=== PATIENT | female | born 1965 | race Caucasian/White ===

== ENCOUNTER → 2019-09-29 15:27 | Outpatient (CLI) | payer OTHER, SELFPAY ==
[2018-09-27 13:07] VITALS: BMI 27.6
[2019-09-29 16:36] LABS: Absolute Lymphocyte Count 2.71 X10^3/uL (0.83-4.51); Absolute Neutrophil Count 3.5 X10^3/uL (2.0-7.7); Basophil# 0.09 X10^3/uL; Basophil% 1.3 % (0-1); Eosinophil# 0.19 X10^3/uL; Eosinophils% 2.7 % (0-5); Hematocrit 42.9 % (37-47); Hemoglobin 14.6 g/dL (12.0-15.0); Lymphocyte # 2.71 X10^3/ul (4.0); Lymphocyte % 38.5 % (19-41); Mean Corpuscular Hgb 31.5 pg (27.0-32.0); Mean Corpuscular Volume 92.7 fL (81-99); Mean Platelet Vol. 10.5 fl (6.2-12.0); Monocyte# 0.55 X10^3/uL; Monocyte% 7.8 % (0-10); NRBC Flagged by Analyzer 0 % (0-5); Neutrophil # 3.47 X10^3/uL (2.7-7.7); Neutrophil % 49.4 % (47-70); Platelet Count 253 K/mm3 (150-450); RBC Distribution Width SD 41.1 fl (35.1-43.9); Red Blood Count 4.63 M/mm3 (4.2-5.4)
[2019-09-29 16:37] LABS: Erythrocyte Sedimentation Rate 9 mm/hr (0-30)
[2019-09-29 17:16] LABS: ALB/GLOB Ratio 1.2 RATIO (0.9-2.4); AST(SGOT) 22 U/L (15-37); Alanine Aminotransfer ALT/SGPT 40 U/L (13-56); Albumin, Serum 4.2 g/dL (3.2-5.0); Alkaline Phosphatase 121 U/L (45-117); Anion Gap 5 (5-15); BUN 9 mg/dL (7-18); BUN/Creat Ratio 12.5 RATIO (10-20); Calcium,Total 9.2 mg/dL (8.5-10.1); Chloride 107 mmol/L (98-107); Creatinine, Serum 0.72 mg/dL (0.55-1.02); EST Glomerular Filtration Rate 89 mL/min (>60); Est Glom Filt Rate - Afr Amer 108 mL/min (>60); Globulin 3.4 g/dL (2.2-4.2); Glucose 88 mg/dL (74-106); Potassium 4.1 mmol/L (3.5-5.1); Protein, Total 7.6 g/dL (6.4-8.2); Rheumatoid Factor < 10.0 IU/mL (<15); Sodium Level 140 mmol/L (136-145); Uric Acid 5.3 mg/dL (2.6-6.0)
[2019-09-29 17:18] LABS: T3 Total - Triiodothyronine 1.26 ng/mL (0.6-1.81); Vitamin D,25 Hydroxy 9.7 ng/mL (29.95-100.01)
[2019-10-04 12:31] LABS: ANTINUCLEAR ANTIBODIES DIRECT Negative (Negative)
[2019-10-04 16:43] LABS: C1 EST Inhibitor, Functional 82 (.)
== END ==
PROVIDERS: PCP Family Medicine; Referring Provider Specialist; Visit Provider Specialist
DX: T78.3XXA Angioneurotic edema, initial encounter (principal); M35.9 Systemic involvement of connective tissue, unspecified; E55.9 Vitamin D deficiency, unspecified; E07.9 Disorder of thyroid, unspecified
CPT/HCPCS: 36415; 80053; 82306; 84156; 84480; 84550; 85025; 85652; 86038; 86160; 86161; 86431

== ENCOUNTER → 2023-02-25 | Outpatient (CLI) | payer OTHER, SELFPAY ==
[2023-02-25 11:39] LABS: Absolute Lymphocyte Count 2.63 X10^3/uL (0.83-4.51); Absolute Neutrophil Count 2.3 X10^3/uL (2.0-7.7); Basophil# 0.08 X10^3/uL; Basophil% 1.5 % (0-1); Eosinophil# 0.13 X10^3/uL; Eosinophils% 2.4 % (0-5); Hematocrit 42.8 % (37-47); Hemoglobin 13.8 g/dL (12.0-15.0); Lymphocyte # 2.63 X10^3/ul (0.83-4.51); Lymphocyte % 47.8 % (19-41); Mean Corp Hgb Conc 32.2 g/dL (32-36); Mean Corpuscular Hgb 31.1 pg (27.0-32.0); Mean Corpuscular Volume 96.4 fL (81-99); Mean Platelet Vol. 10.5 fl (6.2-12.0); Monocyte# 0.38 X10^3/uL; Monocyte% 6.9 % (0-10); NRBC Flagged by Analyzer 0 % (0-5); Neutrophil # 2.25 X10^3/uL (2.7-7.7); Neutrophil % 40.9 % (47-70); Platelet Count 234 K/mm3 (150-450); RBC Distribution Width SD 42.5 fl (35.1-43.9); Red Blood Count 4.44 M/mm3 (4.2-5.4); White Blood Count 5.5 K/mm3 (4.4-11.0)
[2023-02-25 12:23] LABS: AST(SGOT) 22 U/L (15-37); Alanine Aminotransfer ALT/SGPT 30 U/L (13-56); Albumin, Serum 3.9 g/dL (3.2-5.0); Alkaline Phosphatase 96 U/L (45-117); Anion Gap 5 (5-15); BUN 10 mg/dL (7-18); BUN/Creat Ratio 15.1 RATIO (10-20); Bilirubin, Direct 0.16 mg/dL (0.00-0.30); Calcium,Total 9.1 mg/dL (8.5-10.1); Chloride 110 mmol/L (98-107); Cholesterol 198 mg/dL (200); Creatinine, Serum 0.66 mg/dL (0.55-1.02); EST Glomerular Filtration Rate 97 mL/min (>60); Est Glom Filt Rate - Afr Amer 117 mL/min (>60); Globulin 2.9 g/dL (2.2-4.2); Glucose 88 mg/dL (74-106); High Density Lipoprotein 59 mg/dL; Protein, Total 6.8 g/dL (6.4-8.2); Sodium Level 142 mmol/L (136-145); T4 Free Direct 1.04 ng/dL (0.76-1.46); Thyroid Stim Hormone (TSH) 1.19 uIU/mL (0.358-3.74); Triglycerides 128 mg/dL; Very Low Density Lipoprotein 26 mg/dL (5-40)
== END | disposition home or self-care (01) ==
LOC: LAB 11:05
PROVIDERS: PCP Family Medicine; Referring Provider Nurse Practitioner Gerontology; Visit Provider Nurse Practitioner Gerontology
DX: E78.2 Mixed hyperlipidemia (principal); R53.83 Other fatigue
CPT/HCPCS: 36415; 80048; 80061; 80076; 84439; 84443; 84481; 85025

== ENCOUNTER 2023-12-05 10:40 | Emergency (ER) | payer OTHER, SELFPAY ==
[2023-12-05 10:42] VITALS: BP 166/110; PULSE 60; RESP 18; TEMP 35.9; O2SAT 98; BMI 28.3
--- NOTE | 2023-12-05 11:08 | EX.ED.DYSGE1 ---
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 About 8 days ago she developed a rash on her face and neck and a feeling of burning discomfort in her throat. She states her skin feels like it has a sunburn. She saw her PCP 2 days after onset and was given a steroid shot and p.o. prednisone. She is also taking Benadryl and Zyrtec. The rash resolved but she still feels an abnormal high sunburn like sensation in her face and throat. She has no difficulty swallowing or breathing. She states these symptoms occur several times per year and she has seen an insurance claim approver with no source found. The only medication she takes is atenolol. PFSH <PIPE Koehler - Last Filed: 12/05/23 21:04> [facility] Medical History (Updated 12/05/23 @ 12:[address] Carmelo Cary MD) Arthritis Benign hypertension Essential hypertension Facial swelling Fibromyalgia History of angioedema Hyperlipemia, mixed Near syncope Rheumatic fever Sinus tachycardia Home Medications multivitamin 1 tab PO DAILY 10/01/20 [History Last Taken Unknown] lactobacillus combination no.9 4 billion cell capsule (Adult 50 Plus Probiotic) 4,000 mmu cells PO DAILY PRN 02/18/23 [History Last Taken Unknown] atenolol 50 mg tablet 50 mg PO QDAY #90 tabs 05/05/23 [Rx Last Taken Unknown] doxycycline hyclate 100 mg capsule 100 mg PO Q12H #14 caps 07/06/23 [Rx Last Taken Unknown] famotidine 20 mg tablet (Pepcid) 20 mg PO BID 5 days #10 tabs 12/05/23 [Rx Last Taken Unknown] Allergy/AdvReac Type Severity Reaction Status Date / Time sulfamethoxazole Allergy Severe swollen Verified 12/05/23 10:41 [From Bactrim] tongue trimethoprim [From Bactrim] Allergy Severe swollen Verified 12/05/23 10:41 tongue Penicillins Allergy Unknown Unknown Verified 12/05/23 10:41 Family History Mother CVA (cerebral vascular accident) Diabetes Hypertension Surgical History H/O section History of cholecystectomy History of hysterectomy History of replacement of both shoulder joints Social History Smoking Status: Never smoker alcohol intake: never substance use type: does not use caffeine: Yes Type: carbonated beverages what type of physical activity do you participate in: none seatbelt use: always do you feel safe at home: Yes ROS <PIPE Koehler - Last Filed: 12/05/23 21:04> ROS ED ROS Narrative Constitutional: Negative for fever, chills, malaise. CVS: Negative for palpitations, chest pain. Respiratory: Negative for shortness of breath. GI: Negative for nausea, vomiting. EXAM <PIPE Koehler - Last Filed: 12/05/23 21:04> Physical Exam Narrative Exam Narrative: CONST: Patient sitting in no acute distress. EYES: Normal inspection. ENT: No angioedema, moist mucous membranes and normal posterior oropharynx, no drooling or stridor. NECK: Normal inspection. RESP: Speaking in full sentences in no respiratory distress, CTAB. CVS: Regular rate and rhythm, no murmur, no gallop. SKIN: Color normal, no rash, warm, dry, intact. EXTREMITIES: Normal appearance, no pedal edema. NEURO: Oriented x4. PSYCH: Normal affect. Const Vital Signs: 12/05/23 10:42 12/05/23 12:38 Temperature 96.6 F L 98.0 F Temperature Source Oral Pulse Rate 60 72 Respiratory Rate 18 20 H Blood Pressure 166/110 H 110/56 L Blood Pressure Mean 128 74 Pulse Ox 98 99 Oxygen Delivery Method Room Air <Dr. Carmelo Cary MD - Last Filed: 12/05/23 12:30> Physical Exam Const Vital Signs: 12/05/23 10:42 12/05/23 12:38 Temperature 96.6 F L 98.0 F Temperature Source Oral Pulse Rate 60 72 Respiratory Rate 18 20 H Blood Pressure 166/110 H 110/56 L Blood Pressure Mean 128 74 Pulse Ox 98 99 Oxygen Delivery Method Room Air MDM <PIPE Koehler - Last Filed: 12/05/23 21:04> MDM MDM Narrative Medical decision making narrative: History gathered from: Patient and Patient reports idiopathic allergic reactions with a rash and a burning sensation in her face and neck. She has been on a p.o. prednisone taper for 1 week and the rash resolved but she still feels the abnormal burning sensations. Clinically she is in no distress and has no signs of an allergic reaction or rash. There is no angioedema. There is no stridor or wheezing. She is already taking prednisone, Benadryl and Zyrtec. Based on her reported history I ordered IV Pepcid. She felt subjectively improved and was prescribed a few days of Pepcid at home to take in addition to her other medications. She was discharged in stable condition. I have personally performed a face to face assessment of the patient and have reviewed the JANINE Note. I performed a substantive portion of the visit including all aspects of the following. My [place] findings include: History is remarkable for erythematous rash with swelling of unknown etiology. She seen insurance claim approver with no etiology determined. She was seen at urgent care placed on Benadryl prednisone. She presents because she still feels her neck is swollen. The rash is resolved. There is been no change in voice. No difficulty swallowing liquids or solids. She denies cough or shortness of breath. She denies chest pain. Exam is unremarkable. Patient was seen after she received Pepcid. She states her neck no longer feels swollen. According to the physician assistant family teacher there is no objective findings. Posterior pharynx out erythema or exudate. There is no evidence of facial or oral angioedema. Trachea is midline. There is no in-store extra stridor. There is no dysphonia. There is no carotid bruits. Heart lung exam is normal. Medical Decision Making patient was treated with H2 brinda IV. Patient reports marked improvement. She was discharged with prescription for Pepcid. Other additions or changes: Recommended using Pepcid in the future if this reoccurs otherwise she will need to follow-up with her insurance claim approver and general practitioner. <Dr. Carmelo Cary MD - Last Filed: 12/05/23 12:30> [facility] Narrative Medical decision making narrative: History gathered from: Patient and Patient reports idiopathic allergic reactions with a rash and a burning sensation in her face and neck. She has been on a p.o. prednisone taper for 1 week and the rash resolved but she still feels the abnormal burning sensations. Clinically she is in no distress and has no signs of an allergic reaction or rash. There is no angioedema. There is no stridor or wheezing. She is already taking prednisone, Benadryl and Zyrtec. Based on her reported history I ordered IV Pepcid. I have personally performed a face to face assessment of the patient and have reviewed the JANINE Note. I performed a substantive portion of the visit including all aspects of the following. My [place] findings include: History is remarkable for erythematous rash with swelling of unknown etiology. She seen insurance claim approver with no etiology determined. She was seen at urgent care placed on Benadryl prednisone. She presents because she still feels her neck is swollen. The rash is resolved. There is been no change in voice. No difficulty swallowing liquids or solids. She denies cough or shortness of breath. She denies chest pain. Exam is unremarkable. Patient was seen after she received Pepcid. She states her neck no longer feels swollen. According to the physician assistant family teacher there is no objective findings. Posterior pharynx out erythema or exudate. There is no evidence of facial or oral angioedema. Trachea is midline. There is no in-store extra stridor. There is no dysphonia. There is no carotid bruits. Heart lung exam is normal. Medical Decision Making patient was treated with H2 brinda IV. Patient reports marked improvement. She was discharged with prescription for Pepcid. Other additions or changes: Recommended using Pepcid in the future if this reoccurs otherwise she will need to follow-up with her insurance claim approver and general practitioner. Discharge Plan Triage Chief Complaint: Allergic Reaction ED Midlevel Provider: Lona Simmons ED Provider: Carmelo Cary Dx/Rx/DC Orders Clinical Impression: Allergic reaction, Hyperlipemia, mixed, Essential hypertension, History of angioedema Instructions: Allergy Overview Prescriptions: New famotidine [Pepcid] 20 mg tablet 20 mg PO BID 5 Days Qty: 10 0RF No Action multivitamin Tablet 1 tab PO DAILY Adult 50 Plus Probiotic 4 billion cell capsule 4,000 mmu cells PO DAILY PRN Rx Instructions: administer with a meal doxycycline hyclate 100 mg capsule 100 mg PO Q12H Qty: 14 0RF atenolol 50 mg tablet 50 mg PO QDAY Qty: 90 3RF Primary Care Provider: Minerva,Adrian Referrals: Adrian Palma DO [Primary Care Provider] - Disposition Disposition: Home, Self Care Discharge Date/Time: 12/05/23 12:41
[2023-12-05] MEDS: Famotidine 200 MG/20 ML MDV 20 MG in 0.9% Normal Saline (Pres. free 8 ML 300 MG IV (11:53)
[2023-12-05 12:38] VITALS: BP 110/56; PULSE 72; RESP 20; TEMP 36.7; O2SAT 99
== END 2023-12-05 12:41 | disposition home or self-care (01) ==
PROVIDERS: Emergency Provider Emergency Medicine; PCP Family Medicine; Visit Provider Emergency Medicine
DX: T78.40XA Allergy, unspecified, initial encounter (principal); E78.2 Mixed hyperlipidemia; I10 Essential (primary) hypertension
CPT/HCPCS: 96374; 99282; A4216; J3490

== ENCOUNTER → 2024-01-01 | Outpatient (CLI) | payer OTHER, SELFPAY ==
[2024-01-01 18:01] LABS: Absolute Lymphocyte Count 2.17 X10^3/uL (0.83-4.51); Absolute Neutrophil Count 3.5 X10^3/uL (2.0-7.7); Basophil# 0.03 X10^3/uL; Basophil% 0.5 % (0-1); Eosinophil# 0.07 X10^3/uL; Eosinophils% 1.1 % (0-5); Hematocrit 42.5 % (37-47); Hemoglobin 13.6 g/dL (12.0-15.0); Lymphocyte # 2.17 X10^3/ul (0.83-4.51); Lymphocyte % 33.2 % (19-41); Mean Corpuscular Hgb 31.1 pg (27.0-32.0); Mean Platelet Vol. 10.1 fl (6.2-12.0); Monocyte% 10.7 % (0-10); NRBC Flagged by Analyzer 0 % (0-5); Neutrophil % 53.4 % (47-70); Platelet Count 213 K/mm3 (150-450); RBC Distribution Width CV 13.3 % (11.6-14.6); RBC Distribution Width SD 47.5 fl (35.1-43.9); Red Blood Count 4.38 M/mm3 (4.2-5.4); White Blood Count 6.5 K/mm3 (4.4-11.0)
[2024-01-01 18:38] LABS: AST(SGOT) 31 U/L (15-37); Alanine Aminotransfer ALT/SGPT 60 U/L (13-56); Albumin, Serum 3.4 g/dL (3.2-5.0); Alkaline Phosphatase 81 U/L (45-117); Anion Gap 6 (5-15); BUN 14 mg/dL (7-18); BUN/Creat Ratio 15.4 RATIO (10-20); Calcium,Total 9.2 mg/dL (8.5-10.1); Chloride 106 mmol/L (98-107); Creatinine, Serum 0.91 mg/dL (0.55-1.02); EST Glomerular Filtration Rate 67 mL/min (>60); Est Glom Filt Rate - Afr Amer 81 mL/min (>60); Globulin 3.4 g/dL (2.2-4.2); Glucose 77 mg/dL (74-106); Potassium 3.8 mmol/L (3.5-5.1); Protein, Total 6.8 g/dL (6.4-8.2); Rheumatoid Factor < 10.0 IU/mL (<15); Sodium Level 138 mmol/L (136-145)
[2024-01-01 18:53] LABS: Hepatitis B Surface Antibody Non-Reactive; Hepatitis B Surface Antigen Non-Reactive (Nonreactive); Hepatitis C Antibody Non-Reactive (Nonreactive)
[2024-01-04 13:07] LABS: ANTINUCLEAR ANTIBODIES DIRECT Negative (Negative); CCP IgG Antibodies 7 units (0-19); SJOGREN'S Anti-SS-A test < 0.2 AI (0.0-0.9); SJOGREN'S Anti-SS-B test < 0.2 AI (0.0-0.9)
== END | disposition home or self-care (01) ==
LOC: MTLAB 14:38
PROVIDERS: PCP Family Medicine; Referring Provider Internal Medicine Rheumatology; Visit Provider Internal Medicine Rheumatology
DX: M06.4 Inflammatory polyarthropathy (principal); M79.7 Fibromyalgia
CPT/HCPCS: 36415; 80053; 85025; 86038; 86200; 86235; 86431; 86706; 86803; 87340

== ENCOUNTER → 2024-01-15 | Outpatient (CLI) | payer OTHER, SELFPAY | END | disposition home or self-care (01) | LOC: BIMLAB 10:58 | PROVIDERS: PCP Family Medicine; Visit Provider Nurse Practitioner Family | DX: T78.3XXA Angioneurotic edema, initial encounter (principal); X58.XXXA Exposure to other specified factors, initial encounter; R19.7 Diarrhea, unspecified ==